=== PATIENT | female | born 1995 | race Two or more races ===

== ENCOUNTER 2018-10-11 18:20 | Emergency (ER) | payer MEDICAID, OTHER ==
[~2018-10-11] VITALS: Ht 160 cm; Wt 68.0 kg
[2018-10-11 18:34] VITALS: BP 118/76
[2018-10-11] MEDS ORDERED: IBUPROFEN 600 MG TAB PO ONE (19:45)
== END 2018-10-11 23:29 | disposition home or self-care (01) ==
LOC: ER 18:20
DX: S93.402A Sprain of unspecified ligament of left ankle, initial encounter (principal); X50.9XXA Other and unspecified overexertion or strenuous movements or postures, initial encounter; Y93.89 Activity, other specified; Y99.8 Other external cause status; Y92.89 Other specified places as the place of occurrence of the external cause
CPT/HCPCS: 73610